=== PATIENT | male | born 1965 | race Caucasian/White ===

== ENCOUNTER 2017-11-20 12:44 | Emergency (ER) | payer SELFPAY ==
[~2017-11-20] VITALS: Ht 177.8 cm; Wt 81.6 kg
[2017-11-20 12:50] VITALS: BP 127/80
[2017-11-20] MEDS ORDERED: CYCLOBENZAPRINE HCL 10 MG TAB PO ONE (14:45)
[2017-11-20] MEDS ORDERED: KETOROLAC TROMETH 60MG/2ML VIAL IM ONE (14:45)
== END 2017-11-20 15:35 | disposition home or self-care (01) ==
LOC: ER 12:44
DX: S20.211A Contusion of right front wall of thorax, initial encounter (principal); M54.9 Dorsalgia, unspecified; M54.2 Cervicalgia; M25.512 Pain in left shoulder; E78.5 Hyperlipidemia, unspecified; V43.52XA Car driver injured in collision with other type car in traffic accident, initial encounter; Y93.89 Activity, other specified; Y92.89 Other specified places as the place of occurrence of the external cause; Y99.8 Other external cause status
CPT/HCPCS: 71101; 73030; 93005; 96372; 99284; J1885; 94761

== ENCOUNTER 2021-12-19 13:51 | Inpatient (IN) | payer MEDICAID ==
[~2021-12-19] VITALS: Ht 177.8 cm; Wt 31.8 kg
[~2021-12-19 13:51] MED LIST: THYR60TA PO
[2021-12-19] MEDS ORDERED: SODIUM CHLORIDE 0.9% 1,000 ML IV ONE ×3 (14:00→16:45)
[2021-12-19 14:39] LABS: Hemoglobin 8.9 g/dL (13.5-17.5)
[2021-12-19 14:40] LABS: Mean Corpuscular Hemoglobin 30.4 pg (28.0-32.0); Mean Corpuscular Hgb Conc. 34.3 g/dL (32.0-36.0); Mean Corpuscular Volume 88.6 fL (80.0-100.0); Red Blood Cells 2.94 10^6/uL (4.5-5.90); Red Cell Distribution Width 14.1 % (11.8-14.3); White Blood Cell 13.7 10^3/uL (4.4-10.8)
[2021-12-19 14:42] LABS: Basophils % (manual) 0 (0.0-2.0); Blast Cells 0; Eosinophils % (manual) 0 (0-7); Promyelocytes % 0; Reactive Lymphocytes 0
[2021-12-19 14:55] LABS: Band Neutrophils % (manual) 2; Lymphocytes % (manual) 3 (10.0-50.0); Metamyelocytes % 1; Monocytes % (manual) 11 (0-12); Myelocytes % 2
[2021-12-19 15:11] LABS: Albumin 1.9 g/dL (3.4-5.0); Calcium 8.1 mg/dL (8.5-10.1); Magnesium 2.5 mg/dL (1.6-2.6); Potassium 4.6 mmol/L (3.5-5.1)
[2021-12-19 15:14] LABS: Bilirubin, Total 0.4 mg/dL (0.2-1.0); Total Protein 6.9 g/dL (6.4-8.2)
[2021-12-19] MEDS ORDERED: cefTRIAXone 1GM/50ML D5W 50 ML IV ONE (16:45)
[2021-12-19 19:42] LABS: Urine Bacteria FEW /hpf (None Seen); Urine Blood Negative /uL (Negative); Urine Mucus FEW (None Seen); Urine Specific Gravity 1.008 (1.001-1.035); Urine WBC 2 /hpf (0 - 3)
[2021-12-19] MEDS ORDERED: ALBUTEROL SULF 2.5 MG/0.5ML(0.5%) NEB SOLN NEB ONE (22:15)
[2021-12-19] MEDS ORDERED: IPRATROPIUM BROM 0.5 MG/2.5ML INH SOL NEB ONE (22:15)
[2021-12-19] MEDS ORDERED: ONDANSETRON HCL 4 MG/2 ML VIAL IV PRN (22:45)
[2021-12-19] MEDS ORDERED: MORPHINE SULFATE INJECTION 2 MG/ML SYRG IV PRN (22:45)
[2021-12-19] MEDS ORDERED: ACETAMINOPHEN 325 MG TAB PO PRN (22:45)
[2021-12-19] MEDS ORDERED: hydrALAZINE HCL 10 MG TAB PO PRN (22:45)
[2021-12-19] MEDS ORDERED: HYDROcodone-ACET 5/325MG TAB PO PRN (22:45)
[2021-12-19] MEDS ORDERED: ALBUTEROL SULF 2.5 MG/0.5ML(0.5%) NEB SOLN NEB PRN (22:45)
[2021-12-19] MEDS ORDERED: SODIUM CHLORIDE 0.9% 1,000 ML IV SCH (22:45)
[2021-12-20] MEDS: DOXYCYCLINE 100MG/250ML 250 ML IV SCH ×2 (00:44→11:47)
[2021-12-20 00:46] VITALS: BP 104/53
[2021-12-20] MEDS ORDERED: ALUM & MAG HYDROX-SIMETH LIQ(MAALOX) 30 ML PO PRN (04:45)
[2021-12-20] MEDS ORDERED: ALBUMIN 25% 100 ML IV ONE (04:45)
[2021-12-20] MEDS ORDERED: SIMETHICONE 80 MG CHEWABLE TABLET PO PRN (04:45)
[2021-12-20] MEDS ORDERED: THYROID 60 MG TAB PO SCH (05:00)
[2021-12-20 06:20] LABS: Hemoglobin 7.9 g/dL (13.5-17.5); Mean Corpuscular Hemoglobin 30.1 pg (28.0-32.0); Mean Corpuscular Volume 91.3 fL (80.0-100.0); Red Blood Cells 2.62 10^6/uL (4.5-5.90); Red Cell Distribution Width 14.3 % (11.8-14.3); White Blood Cell 15.2 10^3/uL (4.4-10.8)
[2021-12-20 06:48] LABS: Potassium 4.2 mmol/L (3.5-5.1)
[2021-12-20 06:56] LABS: Albumin 2.4 g/dL (3.4-5.0); BUN/Creatinine Ratio 18.4; Calcium 7.8 mg/dL (8.5-10.1)
[2021-12-20 06:57] LABS: Basophils % (manual) 0 (0.0-2.0); Blast Cells 0; Promyelocytes % 0; Reactive Lymphocytes 0
[2021-12-20 06:59] LABS: Bilirubin, Total 0.3 mg/dL (0.2-1.0); Total Protein 6.6 g/dL (6.4-8.2)
[2021-12-20 08:23] LABS: Band Neutrophils % (manual) 5; Eosinophils % (manual) 1 (0-7); Lymphocytes % (manual) 3 (10.0-50.0); Metamyelocytes % 3; Monocytes % (manual) 14 (0-12); Myelocytes % 1
[2021-12-20 09:00] VITALS: BP 92/66
[2021-12-20] MEDS ORDERED: LORazepam 2MG/ML-1ML VIAL IV PRN (09:00)
[2021-12-20] MEDS: ALBUTEROL SULF 2.5 MG/0.5ML(0.5%) NEB SOLN NEB SCH ×5 (09:33→21:06)
[2021-12-20] MEDS: IPRATROPIUM BROM 0.5 MG/2.5ML INH SOL NEB SCH ×5 (09:33→21:06)
[2021-12-20] MEDS: SODIUM CHLORIDE 0.9% 1,000 ML IV SCH (11:08)
[2021-12-20 13:03] VITALS: BP 92/66
[2021-12-20 14:45] LABS: % Iron Saturation 10.3 % (20-55)
[2021-12-20 17:00] VITALS: BP 98/66
[2021-12-20 22:00] VITALS: BP 100/59
[2021-12-21] MEDS: SODIUM CHLORIDE 0.9% 1,000 ML IV SCH ×2 (00:30→14:14)
[2021-12-21] MEDS: DOXYCYCLINE 100MG/250ML 250 ML IV SCH ×3 (00:30→23:28)
[2021-12-21] MEDS: IPRATROPIUM BROM 0.5 MG/2.5ML INH SOL NEB SCH ×6 (02:06→22:55)
[2021-12-21] MEDS: ALBUTEROL SULF 2.5 MG/0.5ML(0.5%) NEB SOLN NEB SCH ×6 (02:06→22:55)
[2021-12-21] MEDS: THYROID 60 MG TAB PO SCH (04:47)
[2021-12-21 05:00] VITALS: BP 103/69
[2021-12-21 05:57] LABS: Hematocrit 21.9 % (41.0-53.0); Hemoglobin 7.4 g/dL (13.5-17.5); Mean Corpuscular Hgb Conc. 33.9 g/dL (32.0-36.0)
[2021-12-21 06:00] LABS: Mean Corpuscular Hemoglobin 30.7 pg (28.0-32.0); Mean Corpuscular Volume 90.4 fL (80.0-100.0); Red Blood Cells 2.42 10^6/uL (4.5-5.90); White Blood Cell 9.1 10^3/uL (4.4-10.8)
[2021-12-21 06:14] LABS: Albumin 1.9 g/dL (3.4-5.0)
[2021-12-21 06:19] LABS: BUN/Creatinine Ratio 11.2; Basophils % (manual) 0 (0.0-2.0); Bilirubin, Total 0.4 mg/dL (0.2-1.0); Blast Cells 0; Eosinophils % (manual) 0 (0-7); Lymphocytes % (manual) 0 (10.0-50.0); Myelocytes % 0; Promyelocytes % 0; Reactive Lymphocytes 0; Total Protein 6.1 g/dL (6.4-8.2)
[2021-12-21 08:00] VITALS: BP 97/63
[2021-12-21] MEDS ORDERED: guaiFENesin 200 MG/10 ML UD PO PRN (08:00)
[2021-12-21 08:02] LABS: Band Neutrophils % (manual) 54; Metamyelocytes % 4; Monocytes % (manual) 8 (0-12)
[2021-12-21 08:55] VITALS: BP 97/63
[2021-12-21 13:00] VITALS: BP 99/63
[2021-12-21] MEDS: guaiFENesin-CODEINE Liq 5 ML UD PO PRN ×3 (14:15→22:15)
[2021-12-21 17:00] VITALS: BP 98/65
[2021-12-21] MEDS: FERROUS SULFATE 325mg EC TAB PO SCH (18:24)
[2021-12-21] MEDS: ENOXAPARIN SOD 40 MG/0.4 ML SYRINGE SC SCH ×2 (18:24→18:30)
[2021-12-21] MEDS: LACTULOSE 20Gm/30ML SOLN PO PRN (18:25)
[2021-12-21 21:54] VITALS: BP 102/59
[2021-12-21] MEDS: SENNA 8.6 MG TAB PO SCH (22:15)
[2021-12-21] MEDS: DOCUSATE SOD 100 MG CAP PO SCH (22:15)
[2021-12-22] MEDS: IPRATROPIUM BROM 0.5 MG/2.5ML INH SOL NEB SCH ×6 (03:10→23:05)
[2021-12-22] MEDS: ALBUTEROL SULF 2.5 MG/0.5ML(0.5%) NEB SOLN NEB SCH ×6 (03:10→23:05)
[2021-12-22] MEDS: guaiFENesin-CODEINE Liq 5 ML UD PO PRN ×2 (03:15→09:07)
[2021-12-22 05:00] VITALS: BP 101/66
[2021-12-22 05:22] LABS: Hemoglobin 7.7 g/dL (13.5-17.5); Red Cell Distribution Width 14.2 % (11.8-14.3)
[2021-12-22] MEDS: THYROID 60 MG TAB PO SCH (05:22)
[2021-12-22] MEDS: SODIUM CHLORIDE 0.9% 1,000 ML IV SCH ×2 (05:22→19:12)
[2021-12-22 05:26] LABS: Hematocrit 22.5 % (41.0-53.0); Mean Corpuscular Hemoglobin 30.6 pg (28.0-32.0); White Blood Cell 8.1 10^3/uL (4.4-10.8)
[2021-12-22 05:31] LABS: Basophils % (manual) 0 (0.0-2.0); Blast Cells 0; Eosinophils % (manual) 0 (0-7); Promyelocytes % 0; Reactive Lymphocytes 0
[2021-12-22 05:35] LABS: BUN/Creatinine Ratio 6.3; Calcium 8.1 mg/dL (8.5-10.1); Potassium 4.3 mmol/L (3.5-5.1)
[2021-12-22 05:38] LABS: Bilirubin, Total 0.3 mg/dL (0.2-1.0); Total Protein 6.3 g/dL (6.4-8.2)
[2021-12-22 05:58] LABS: Band Neutrophils % (manual) 14; Lymphocytes % (manual) 3 (10.0-50.0); Metamyelocytes % 1; Monocytes % (manual) 14 (0-12); Myelocytes % 2
[2021-12-22] MEDS: FERROUS SULFATE 325mg EC TAB PO SCH ×3 (08:41→19:00)
[2021-12-22] MEDS: DOCUSATE SOD 100 MG CAP PO SCH ×2 (08:42→21:56)
[2021-12-22] MEDS: ENOXAPARIN SOD 40 MG/0.4 ML SYRINGE SC SCH ×2 (08:42→10:00)
[2021-12-22 09:00] VITALS: BP 104/66
[2021-12-22] MEDS: DOXYCYCLINE 100 MG TAB/CAP PO SCH ×2 (11:10→22:00)
[2021-12-22] MEDS: PROMETHAZINE W/CODEINE 5 ML ORAL SYRUP PO PRN ×4 (11:10→23:06)
[2021-12-22] MEDS ORDERED: GUAI100S6 PO ×3 (11:36→11:45)
[2021-12-22] MEDS ORDERED: DOX100T PO (11:38)
[2021-12-22] MEDS ORDERED: SENN-83 PO (11:38)
[2021-12-22] MEDS ORDERED: DOCU100C10 PO (11:38)
[2021-12-22] MEDS ORDERED: FER325T PO (11:38)
[2021-12-22] MEDS ORDERED: [UNRECOGNIZED DRUG - CODE] (12:09)
[2021-12-22] MEDS ORDERED: DEXTSYP31 PO (12:11)
[2021-12-22 13:00] VITALS: BP 104/72
[2021-12-22 17:00] VITALS: BP 122/68
[2021-12-22 18:08] VITALS: BP 122/68
[2021-12-22 21:47] VITALS: BP 110/68
[2021-12-22] MEDS: SENNA 8.6 MG TAB PO SCH (21:56)
[2021-12-23] MEDS: PROMETHAZINE W/CODEINE 5 ML ORAL SYRUP PO PRN ×4 (02:52→17:05)
[2021-12-23] MEDS: IPRATROPIUM BROM 0.5 MG/2.5ML INH SOL NEB SCH ×4 (03:00→14:43)
[2021-12-23] MEDS: ALBUTEROL SULF 2.5 MG/0.5ML(0.5%) NEB SOLN NEB SCH ×4 (03:00→14:43)
[2021-12-23 04:48] VITALS: BP 105/76
[2021-12-23] MEDS: THYROID 60 MG TAB PO SCH (04:54)
[2021-12-23] MEDS: FERROUS SULFATE 325mg EC TAB PO SCH ×2 (07:33→11:54)
[2021-12-23] MEDS: LACTULOSE 20Gm/30ML SOLN PO PRN (07:47)
[2021-12-23 08:00] VITALS: BP 104/73
[2021-12-23] MEDS: SODIUM CHLORIDE 0.9% 1,000 ML IV SCH (09:30)
[2021-12-23] MEDS: ENOXAPARIN SOD 40 MG/0.4 ML SYRINGE SC SCH (10:00)
[2021-12-23] MEDS: DOCUSATE SOD 100 MG CAP PO SCH (10:14)
[2021-12-23] MEDS: DOXYCYCLINE 100 MG TAB/CAP PO SCH (10:14)
[2021-12-23 12:00] VITALS: BP 99/66
[2021-12-23 16:00] VITALS: BP 110/67
== END 2021-12-23 17:45 | disposition home health service (06) | DRG 139 ==
LOC: ER 13:51 → EDBD 13:51 → TELE 22:36 → TELE-EAST 12-20 08:53
PROVIDERS: ADMIT Nurse Practitioner Family; ATTEND Nurse Practitioner Family
DX: J18.9 Pneumonia, unspecified organism (principal); J96.01 Acute respiratory failure with hypoxia; N17.0 Acute kidney failure with tubular necrosis; C34.90 Malignant neoplasm of unspecified part of unspecified bronchus or lung; C09.9 Malignant neoplasm of tonsil, unspecified; E87.1 Hypo-osmolality and hyponatremia; E87.8 Other disorders of electrolyte and fluid balance, not elsewhere classified; E86.0 Dehydration; D75.839 Thrombocytosis, unspecified; I95.89 Other hypotension; E03.9 Hypothyroidism, unspecified; J43.9 Emphysema, unspecified; D50.9 Iron deficiency anemia, unspecified; E86.1 Hypovolemia; I10 Essential (primary) hypertension; J98.11 Atelectasis; R00.0 Tachycardia, unspecified; Z20.822 Contact with and (suspected) exposure to COVID-19; Z85.118 Personal history of other malignant neoplasm of bronchus and lung; Z85.818 Personal history of malignant neoplasm of other sites of lip, oral cavity, and pharynx; Z92.21 Personal history of antineoplastic chemotherapy; Z92.3 Personal history of irradiation; Z87.891 Personal history of nicotine dependence
CPT/HCPCS: 36415; 70450; 71045; 71250; 76775; 80053; 81001; 82270; 83540; 83550; 83605; 83735; 85007; 85027; 85045; 86880; 87040; 93005; 94640; 96361; 96365; 99291; G0378; J0696; J3490; P9047

== ENCOUNTER 2022-02-18 11:30 | Inpatient (IN) | payer MEDICAID ==
[~2022-02-18] VITALS: Ht 177.8 cm; Wt 60.8 kg
[~2022-02-18 11:30] MED LIST changes: +DEXTSYP31 PO; +DOCU100C10 PO; +DOX100T PO; +FER325T PO; +GUAI100S6 PO; +SENN-83 PO; +[UNRECOGNIZED DRUG - CODE]
[2022-02-18] MEDS ORDERED: cefTRIAXone 1GM/50ML D5W 50 ML IV ONE (12:00)
[2022-02-18] MEDS ORDERED: MAGNESIUM SULFATE 1GM/100ML 100 ML IV ONE (12:00)
[2022-02-18] MEDS ORDERED: AZITHROMYCIN 500MG/ 250ML 250 ML IV ONE (12:00)
[2022-02-18 12:30] LABS: Eosinophils # (auto) 0 10 ^3/uL (0-0.8); Hemoglobin 8.3 g/dL (13.5-17.5); Lymphocytes # (auto) 0.2 10 ^3/uL (0.4-5.4); Mean Corpuscular Hemoglobin 26.1 pg (28.0-32.0); White Blood Cell 14.4 10^3/uL (4.4-10.8)
[2022-02-18 12:34] LABS: Basophils # (auto) 0.1 10 ^3/uL (0-0.2); Basophils % (auto) 0.4 % (0.0-2.0); Lymphocytes % (auto) 1.6 % (10.0-50.0); Mean Corpuscular Hgb Conc. 31.9 g/dL (32.0-36.0); Monocytes # (auto) 0.8 10 ^3/uL (0-1.3); Monocytes % (auto) 5.4 % (0.0-12.0); Neutrophils # (auto) 13.3 10 ^3/uL (1.6-8.6); Neutrophils % (auto) 92.6 % (37.0-80.0); Nucleated Red Blood Cells % 0.1 %; Red Blood Cells 3.18 10^6/uL (4.5-5.90); Red Cell Distribution Width 19.1 % (11.8-14.3)
[2022-02-18 12:45] LABS: Albumin 1.7 g/dL (3.4-5.0); BUN/Creatinine Ratio 34.5; Calcium 8.8 mg/dL (8.5-10.1); Potassium 4.3 mmol/L (3.5-5.1)
[2022-02-18 12:48] LABS: Bilirubin, Total 0.4 mg/dL (0.2-1.0); Total Protein 7.4 g/dL (6.4-8.2)
[2022-02-18 12:53] LABS: INR 1.43 (0.9-1.15); Partial Thromboplastin Time 29.1 sec (23.6-33.0)
[2022-02-18 13:56] LABS: Lactic Acid w/Reflex 2.7 mmol/L (0.4-2.0)
[2022-02-18] MEDS ORDERED: SODIUM CHLORIDE 0.9% 2,000 ML IV ONE (14:15)
[2022-02-18] MEDS ORDERED: IOHEXOL 350 MG/ML 100ML IJ ONE (16:28)
[2022-02-18] MEDS ORDERED: MORPHINE SULFATE INJ 2 MG/ml SYRG IV PRN ×2 (17:00)
[2022-02-18] MEDS ORDERED: ONDANSETRON HCL 4 MG/2 ML VIAL IV PRN (17:00)
[2022-02-18] MEDS ORDERED: NITROGLYCERIN 0.4 MG SL TAB SL PRN (17:00)
[2022-02-18] MEDS: IPRATROPIUM BROM 0.5 MG/2.5ML INH SOL NEB SCH (17:33)
[2022-02-18] MEDS: ALBUTEROL SULF 2.5 MG/0.5ML(0.5%) NEB SOLN NEB PRN (17:33)
[2022-02-18] MEDS: PIPERACILLIN-TAZOB 3.375GM 100 ML IV SCH (18:13)
[2022-02-19] MEDS: PIPERACILLIN-TAZOB 3.375GM 100 ML IV SCH ×4 (00:13→18:21)
[2022-02-19] MEDS: ALBUTEROL SULF 2.5 MG/0.5ML(0.5%) NEB SOLN NEB PRN ×7 (02:34→22:02)
[2022-02-19] MEDS: IPRATROPIUM BROM 0.5 MG/2.5ML INH SOL NEB SCH ×8 (02:35→22:02)
[2022-02-19 04:34] LABS: Basophils # (auto) 0 10 ^3/uL (0-0.2); Eosinophils # (auto) 0 10 ^3/uL (0-0.8); Eosinophils % (auto) 0.1 % (0.0-7.0); Lymphocytes # (auto) 0.3 10 ^3/uL (0.4-5.4); Lymphocytes % (auto) 2.6 % (10.0-50.0); Red Blood Cells 2.98 10^6/uL (4.5-5.90)
[2022-02-19 04:37] LABS: Basophils % (auto) 0.1 % (0.0-2.0); Hematocrit 24.6 % (41.0-53.0); Hemoglobin 7.7 g/dL (13.5-17.5); Mean Corpuscular Hemoglobin 25.9 pg (28.0-32.0); Mean Corpuscular Hgb Conc. 31.3 g/dL (32.0-36.0); Mean Corpuscular Volume 82.6 fL (80.0-100.0); Neutrophils % (auto) 88.2 % (37.0-80.0); Red Cell Distribution Width 19.2 % (11.8-14.3); White Blood Cell 11.3 10^3/uL (4.4-10.8)
[2022-02-19 04:51] LABS: Calcium 8.1 mg/dL (8.5-10.1); Potassium 3.9 mmol/L (3.5-5.1)
[2022-02-19 04:58] LABS: Albumin 1.5 g/dL (3.4-5.0); BUN/Creatinine Ratio 37.3; Bilirubin, Total 0.3 mg/dL (0.2-1.0); Total Protein 6.7 g/dL (6.4-8.2)
[2022-02-19] MEDS: ENOXAPARIN SOD 40 MG/0.4 ML SYRINGE SC SCH (10:13)
[2022-02-19] MEDS: ACETAMINOPHEN 325 MG TAB PO PRN ×2 (18:50→19:51)
[2022-02-20] VITALS (54 sets, daily range): BP systolic 93–123; BP diastolic 64–93
[2022-02-20] MEDS: ACETAMINOPHEN 325 MG TAB PO PRN (03:52)
[2022-02-20] MEDS: ALBUTEROL SULF 2.5 MG/0.5ML(0.5%) NEB SOLN NEB PRN ×5 (06:18→22:33)
[2022-02-20] MEDS: IPRATROPIUM BROM 0.5 MG/2.5ML INH SOL NEB SCH ×5 (06:18→22:34)
[2022-02-20] MEDS: PIPERACILLIN-TAZOB 3.375GM 100 ML IV SCH ×4 (06:37→17:58)
[2022-02-20 06:45] LABS: Basophils # (auto) 0 10 ^3/uL (0-0.2); Basophils % (auto) 0.1 % (0.0-2.0); Eosinophils # (auto) 0 10 ^3/uL (0-0.8); Eosinophils % (auto) 0.3 % (0.0-7.0); Hemoglobin 7.3 g/dL (13.5-17.5); Lymphocytes # (auto) 0.3 10 ^3/uL (0.4-5.4)
[2022-02-20 06:48] LABS: Hematocrit 22.5 % (41.0-53.0); Lymphocytes % (auto) 3.1 % (10.0-50.0); Mean Corpuscular Hemoglobin 26.7 pg (28.0-32.0); Mean Corpuscular Hgb Conc. 32.5 g/dL (32.0-36.0); Mean Corpuscular Volume 82.1 fL (80.0-100.0); Monocytes % (auto) 10.9 % (0.0-12.0); Neutrophils # (auto) 7.8 10 ^3/uL (1.6-8.6); Neutrophils % (auto) 85.6 % (37.0-80.0); Red Blood Cells 2.74 10^6/uL (4.5-5.90); Red Cell Distribution Width 18.4 % (11.8-14.3); White Blood Cell 9.1 10^3/uL (4.4-10.8)
[2022-02-20] MEDS ORDERED: ALBUAER3 IN (07:52)
[2022-02-20] MEDS ORDERED: CIPR500T4 PO (07:52)
[2022-02-20] MEDS ORDERED: OMEP20TA PO (07:52)
[2022-02-20] MEDS ORDERED: THYR30TA PO (07:52)
[2022-02-20] MEDS: ENOXAPARIN SOD 40 MG/0.4 ML SYRINGE SC SCH (10:00)
[2022-02-20] MEDS: THYROID 60 MG TAB PO SCH (10:06)
[2022-02-20] MEDS ORDERED: LIDOCAINE 2%HCL (LOCAL ANESTH.) INJ 10ml MDV ONE (11:09)
[2022-02-20] MEDS: HYDROcodone-ACET 5/325MG TAB PO PRN ×3 (13:02→21:23)
[2022-02-21] VITALS (37 sets, daily range): BP systolic 82–107; BP diastolic 57–84
[2022-02-21] MEDS: PIPERACILLIN-TAZOB 3.375GM 100 ML IV SCH ×5 (00:10→23:36)
[2022-02-21] MEDS: HYDROcodone-ACET 5/325MG TAB PO PRN ×4 (02:21→23:35)
[2022-02-21] MEDS: ALBUTEROL SULF 2.5 MG/0.5ML(0.5%) NEB SOLN NEB PRN ×5 (02:43→21:28)
[2022-02-21] MEDS: IPRATROPIUM BROM 0.5 MG/2.5ML INH SOL NEB SCH ×5 (02:43→21:28)
[2022-02-21] MEDS: THYROID 60 MG TAB PO SCH (05:11)
[2022-02-21] MEDS: ENOXAPARIN SOD 40 MG/0.4 ML SYRINGE SC SCH (10:00)
[2022-02-21] MEDS ORDERED: PANTOPRAZOLE 40 MG TAB PO ONE (10:45)
[2022-02-21] MEDS ORDERED: ALUM & MAG HYDROX-SIMETH LIQ(MAALOX) 30 ML PO ONE ×2 (12:15→13:00)
[2022-02-22] VITALS (23 sets, daily range): BP systolic 82–99; BP diastolic 50–69
[2022-02-22] MEDS: IPRATROPIUM BROM 0.5 MG/2.5ML INH SOL NEB SCH ×6 (01:44→22:03)
[2022-02-22] MEDS: ALBUTEROL SULF 2.5 MG/0.5ML(0.5%) NEB SOLN NEB PRN ×6 (01:44→22:03)
[2022-02-22] MEDS: HYDROcodone-ACET 5/325MG TAB PO PRN ×4 (03:40→20:30)
[2022-02-22 04:48] LABS: Basophils # (auto) 0 10 ^3/uL (0-0.2); Basophils % (auto) 0.1 % (0.0-2.0); Eosinophils # (auto) 0 10 ^3/uL (0-0.8); Eosinophils % (auto) 0.3 % (0.0-7.0); Hematocrit 24.3 % (41.0-53.0); Lymphocytes # (auto) 0.3 10 ^3/uL (0.4-5.4); Mean Corpuscular Hemoglobin 25.7 pg (28.0-32.0); Mean Corpuscular Hgb Conc. 30.3 g/dL (32.0-36.0)
[2022-02-22 04:49] LABS: Hemoglobin 7.4 g/dL (13.5-17.5); Mean Corpuscular Volume 84.6 fL (80.0-100.0); Monocytes # (auto) 0.9 10 ^3/uL (0-1.3); Monocytes % (auto) 8.4 % (0.0-12.0); Neutrophils # (auto) 9.3 10 ^3/uL (1.6-8.6); Neutrophils % (auto) 88.2 % (37.0-80.0); Red Blood Cells 2.87 10^6/uL (4.5-5.90); Red Cell Distribution Width 18.7 % (11.8-14.3); White Blood Cell 10.5 10^3/uL (4.4-10.8)
[2022-02-22] MEDS: THYROID 60 MG TAB PO SCH (05:02)
[2022-02-22 05:05] LABS: BUN/Creatinine Ratio 35.1; Calcium 8.7 mg/dL (8.5-10.1); Potassium 4.2 mmol/L (3.5-5.1)
[2022-02-22] MEDS: PIPERACILLIN-TAZOB 3.375GM 100 ML IV SCH ×3 (06:14→19:11)
[2022-02-22] MEDS: ALUM & MAG HYDROX-SIMETH LIQ(MAALOX) 30 ML PO SCH (10:00)
[2022-02-22] MEDS: ENOXAPARIN SOD 40 MG/0.4 ML SYRINGE SC SCH (10:00)
[2022-02-22] MEDS: PANTOPRAZOLE 40 MG TAB PO SCH (10:00)
[2022-02-23] VITALS (26 sets, daily range): BP systolic 87–113; BP diastolic 56–81
[2022-02-23] MEDS: PIPERACILLIN-TAZOB 3.375GM 100 ML IV SCH ×3 (00:14→11:20)
[2022-02-23] MEDS: HYDROcodone-ACET 5/325MG TAB PO PRN ×5 (00:34→20:51)
[2022-02-23] MEDS: THYROID 60 MG TAB PO SCH (05:14)
[2022-02-23] MEDS: ALBUTEROL SULF 2.5 MG/0.5ML(0.5%) NEB SOLN NEB PRN ×5 (06:45→22:21)
[2022-02-23] MEDS: IPRATROPIUM BROM 0.5 MG/2.5ML INH SOL NEB SCH ×5 (06:45→22:21)
[2022-02-23] MEDS: ENOXAPARIN SOD 40 MG/0.4 ML SYRINGE SC SCH (09:43)
[2022-02-23] MEDS: PANTOPRAZOLE 40 MG TAB PO SCH (09:44)
[2022-02-23] MEDS: ALUM & MAG HYDROX-SIMETH LIQ(MAALOX) 30 ML PO SCH ×2 (11:04→11:19)
[2022-02-23] MEDS ORDERED: LACTULOSE 20Gm/30ML SOLN PO PRN (12:00)
[2022-02-23] MEDS ORDERED: CEFTRIAXONE SODIUM 2 GM in D5W 5% 50 ML IV ONE (13:15)
[2022-02-23] MEDS: DOCUSATE SOD 100 MG CAP PO SCH (22:36)
[2022-02-23] MEDS: SENNA 8.6 MG TAB PO SCH (22:36)
[2022-02-24] VITALS (22 sets, daily range): BP systolic 93–114; BP diastolic 53–80
[2022-02-24] MEDS: HYDROcodone-ACET 5/325MG TAB PO PRN ×7 (01:17→23:04)
[2022-02-24] MEDS: THYROID 60 MG TAB PO SCH (05:35)
[2022-02-24 05:59] LABS: Basophils # (auto) 0 10 ^3/uL (0-0.2); Basophils % (auto) 0.1 % (0.0-2.0); Eosinophils # (auto) 0 10 ^3/uL (0-0.8); Eosinophils % (auto) 0.4 % (0.0-7.0); Hemoglobin 7.2 g/dL (13.5-17.5); Lymphocytes # (auto) 0.4 10 ^3/uL (0.4-5.4); Monocytes # (auto) 0.9 10 ^3/uL (0-1.3)
[2022-02-24 06:02] LABS: Hematocrit 22.5 % (41.0-53.0); Lymphocytes % (auto) 4.4 % (10.0-50.0); Mean Corpuscular Hemoglobin 25.9 pg (28.0-32.0); Mean Corpuscular Hgb Conc. 31.8 g/dL (32.0-36.0); Mean Corpuscular Volume 81.4 fL (80.0-100.0); Monocytes % (auto) 9.1 % (0.0-12.0); Neutrophils # (auto) 8.5 10 ^3/uL (1.6-8.6); Red Blood Cells 2.77 10^6/uL (4.5-5.90); Red Cell Distribution Width 18.7 % (11.8-14.3); White Blood Cell 9.9 10^3/uL (4.4-10.8)
[2022-02-24 06:13] LABS: Potassium 4.2 mmol/L (3.5-5.1)
[2022-02-24 06:21] LABS: BUN/Creatinine Ratio 29.7; Calcium 8.1 mg/dL (8.5-10.1)
[2022-02-24] MEDS: IPRATROPIUM BROM 0.5 MG/2.5ML INH SOL NEB SCH ×5 (06:28→21:59)
[2022-02-24] MEDS: ALBUTEROL SULF 2.5 MG/0.5ML(0.5%) NEB SOLN NEB PRN ×5 (06:28→21:59)
[2022-02-24] MEDS: PANTOPRAZOLE 40 MG TAB PO SCH (09:34)
[2022-02-24] MEDS: DOCUSATE SOD 100 MG CAP PO SCH ×2 (09:34→22:02)
[2022-02-24] MEDS: ENOXAPARIN SOD 40 MG/0.4 ML SYRINGE SC SCH (09:34)
[2022-02-24] MEDS: CEFTRIAXONE SODIUM 2 GM in D5W 5% 50 ML IV SCH (09:40)
[2022-02-24] MEDS: ALUM & MAG HYDROX-SIMETH LIQ(MAALOX) 30 ML PO SCH (10:00)
[2022-02-24] MEDS: SENNA 8.6 MG TAB PO SCH (22:00)
[2022-02-25] VITALS (16 sets, daily range): BP systolic 89–109; BP diastolic 65–73
[2022-02-25] MEDS: HYDROcodone-ACET 5/325MG TAB PO PRN ×5 (03:49→20:36)
[2022-02-25] MEDS: THYROID 60 MG TAB PO SCH (05:13)
[2022-02-25] MEDS: OMEPRAZOLE DR 20 MG CAPSULE PO SCH (05:17)
[2022-02-25 05:19] LABS: Mean Corpuscular Hgb Conc. 31.3 g/dL (32.0-36.0)
[2022-02-25 05:20] LABS: Hematocrit 21.7 % (41.0-53.0); Mean Corpuscular Hemoglobin 25.2 pg (28.0-32.0); Mean Corpuscular Volume 80.6 fL (80.0-100.0); Red Blood Cells 2.69 10^6/uL (4.5-5.90); Red Cell Distribution Width 18.9 % (11.8-14.3); White Blood Cell 8.2 10^3/uL (4.4-10.8)
[2022-02-25 05:24] LABS: Hemoglobin 6.8 g/dL (13.5-17.5)
[2022-02-25 05:26] LABS: Basophils % (manual) 0 (0.0-2.0); Blast Cells 0; Eosinophils % (manual) 0 (0-7); Metamyelocytes % 0; Promyelocytes % 0; Reactive Lymphocytes 0
[2022-02-25 05:32] LABS: Calcium 8.3 mg/dL (8.5-10.1); Magnesium 1.7 mg/dL (1.6-2.6); Potassium 4.4 mmol/L (3.5-5.1)
[2022-02-25 05:33] LABS: BUN/Creatinine Ratio 23.7
[2022-02-25] MEDS: ALBUTEROL SULF 2.5 MG/0.5ML(0.5%) NEB SOLN NEB PRN ×5 (06:04→22:01)
[2022-02-25] MEDS: IPRATROPIUM BROM 0.5 MG/2.5ML INH SOL NEB SCH ×5 (06:04→22:01)
[2022-02-25 06:25] LABS: Band Neutrophils % (manual) 5; Lymphocytes % (manual) 5 (10.0-50.0); Monocytes % (manual) 2 (0-12); Myelocytes % 1
[2022-02-25] MEDS: DOCUSATE SOD 100 MG CAP PO SCH ×2 (09:08→22:22)
[2022-02-25] MEDS: CEFTRIAXONE SODIUM 2 GM in D5W 5% 50 ML IV SCH (09:08)
[2022-02-25] MEDS: ENOXAPARIN SOD 40 MG/0.4 ML SYRINGE SC SCH (09:09)
[2022-02-25] MEDS: ALUM & MAG HYDROX-SIMETH LIQ(MAALOX) 30 ML PO SCH (09:09)
[2022-02-25] MEDS: PANTOPRAZOLE 40 MG TAB PO SCH (09:49)
[2022-02-25] MEDS: SENNA 8.6 MG TAB PO SCH (22:00)
[2022-02-26] MEDS: HYDROcodone-ACET 5/325MG TAB PO PRN ×5 (00:45→20:16)
[2022-02-26] MEDS: THYROID 60 MG TAB PO SCH (04:42)
[2022-02-26 05:01] VITALS: BP 98/69
[2022-02-26] MEDS: IPRATROPIUM BROM 0.5 MG/2.5ML INH SOL NEB SCH ×5 (05:50→21:42)
[2022-02-26] MEDS: ALBUTEROL SULF 2.5 MG/0.5ML(0.5%) NEB SOLN NEB PRN ×5 (05:50→21:42)
[2022-02-26 08:00] VITALS: BP 103/76
[2022-02-26] MEDS: DOCUSATE SOD 100 MG CAP PO SCH ×2 (09:48→22:32)
[2022-02-26] MEDS: ENOXAPARIN SOD 40 MG/0.4 ML SYRINGE SC SCH (09:48)
[2022-02-26] MEDS: CEFTRIAXONE SODIUM 2 GM in D5W 5% 50 ML IV SCH (09:48)
[2022-02-26] MEDS: OMEPRAZOLE DR 20 MG CAPSULE PO SCH (09:49)
[2022-02-26] MEDS: PANTOPRAZOLE 40 MG TAB PO SCH (10:00)
[2022-02-26] MEDS: ALUM & MAG HYDROX-SIMETH LIQ(MAALOX) 30 ML PO SCH (10:00)
[2022-02-26 12:00] VITALS: BP 88/60
[2022-02-26 16:00] VITALS: BP 103/73
[2022-02-26 19:00] VITALS: BP 99/68
[2022-02-26] MEDS: SENNA 8.6 MG TAB PO SCH (22:00)
[2022-02-27 01:00] VITALS: BP 98/73
[2022-02-27] MEDS: HYDROcodone-ACET 5/325MG TAB PO PRN ×5 (03:43→22:15)
[2022-02-27 04:00] VITALS: BP 103/74
[2022-02-27 04:42] LABS: Hematocrit 24.7 % (41.0-53.0); Hemoglobin 7.7 g/dL (13.5-17.5); Mean Corpuscular Hemoglobin 25.2 pg (28.0-32.0); Mean Corpuscular Hgb Conc. 31.1 g/dL (32.0-36.0); Mean Corpuscular Volume 80.9 fL (80.0-100.0); Red Blood Cells 3.06 10^6/uL (4.5-5.90); Red Cell Distribution Width 18.5 % (11.8-14.3); White Blood Cell 11.6 10^3/uL (4.4-10.8)
[2022-02-27 04:43] LABS: Band Neutrophils % (manual) 0; Basophils % (manual) 0 (0.0-2.0); Blast Cells 0; Eosinophils % (manual) 0 (0-7); Metamyelocytes % 0; Myelocytes % 0; Promyelocytes % 0; Reactive Lymphocytes 0
[2022-02-27 05:00] LABS: Albumin 1.1 g/dL (3.4-5.0); Calcium 7.9 mg/dL (8.5-10.1); Potassium 4.2 mmol/L (3.5-5.1)
[2022-02-27 05:04] LABS: BUN/Creatinine Ratio 22.5; Bilirubin, Total 0.2 mg/dL (0.2-1.0)
[2022-02-27] MEDS: THYROID 60 MG TAB PO SCH (05:23)
[2022-02-27] MEDS: ALBUTEROL SULF 2.5 MG/0.5ML(0.5%) NEB SOLN NEB PRN ×4 (05:31→22:50)
[2022-02-27] MEDS: IPRATROPIUM BROM 0.5 MG/2.5ML INH SOL NEB SCH ×5 (05:31→22:50)
[2022-02-27] MEDS: OMEPRAZOLE DR 20 MG CAPSULE PO SCH (06:02)
[2022-02-27 08:00] VITALS: BP 100/66
[2022-02-27 08:32] LABS: Lymphocytes % (manual) 5 (10.0-50.0); Monocytes % (manual) 10 (0-12)
[2022-02-27] MEDS: ALUM & MAG HYDROX-SIMETH LIQ(MAALOX) 30 ML PO SCH (09:45)
[2022-02-27] MEDS: CEFTRIAXONE SODIUM 2 GM in D5W 5% 50 ML IV SCH (09:45)
[2022-02-27] MEDS: PANTOPRAZOLE 40 MG TAB PO SCH (09:45)
[2022-02-27] MEDS: ENOXAPARIN SOD 40 MG/0.4 ML SYRINGE SC SCH (09:45)
[2022-02-27] MEDS: DOCUSATE SOD 100 MG CAP PO SCH ×2 (09:45→22:15)
[2022-02-27 12:00] VITALS: BP 97/62
[2022-02-27 16:00] VITALS: BP 90/72
[2022-02-27] MEDS: SENNA 8.6 MG TAB PO SCH (22:00)
[2022-02-28] VITALS (40 sets, daily range): BP systolic 90–118; BP diastolic 57–79
[2022-02-28] MEDS: HYDROcodone-ACET 5/325MG TAB PO PRN ×3 (03:08→20:51)
[2022-02-28 05:00] LABS: Basophils # (auto) 0 10 ^3/uL (0-0.2); Eosinophils # (auto) 0 10 ^3/uL (0-0.8); Eosinophils % (auto) 0.3 % (0.0-7.0); Hemoglobin 7.3 g/dL (13.5-17.5); Lymphocytes # (auto) 0.3 10 ^3/uL (0.4-5.4)
[2022-02-28] MEDS: THYROID 60 MG TAB PO SCH (05:03)
[2022-02-28 05:04] LABS: Basophils % (auto) 0.2 % (0.0-2.0); Hematocrit 22.9 % (41.0-53.0); Lymphocytes % (auto) 2.6 % (10.0-50.0); Mean Corpuscular Hemoglobin 25.9 pg (28.0-32.0); Mean Corpuscular Hgb Conc. 32.1 g/dL (32.0-36.0); Mean Corpuscular Volume 80.7 fL (80.0-100.0); Monocytes % (auto) 7.2 % (0.0-12.0); Neutrophils # (auto) 12.1 10 ^3/uL (1.6-8.6); Neutrophils % (auto) 89.7 % (37.0-80.0); Red Blood Cells 2.83 10^6/uL (4.5-5.90); Red Cell Distribution Width 18.5 % (11.8-14.3); White Blood Cell 13.5 10^3/uL (4.4-10.8)
[2022-02-28 05:19] LABS: BUN/Creatinine Ratio 21.6; Calcium 8.1 mg/dL (8.5-10.1); Potassium 4.3 mmol/L (3.5-5.1)
[2022-02-28] MEDS: OMEPRAZOLE DR 20 MG CAPSULE PO SCH (07:00)
[2022-02-28 07:26] LABS: INR 1.26 (0.9-1.15); Partial Thromboplastin Time 35.6 sec (23.6-33.0)
[2022-02-28] MEDS ORDERED: LIDOCAINE HCL 2 % INJ 2ML MPF NEB ONE (08:30)
[2022-02-28] MEDS: SODIUM CHLORIDE 0.9% 1,000 ML IV SCH ×2 (09:20)
[2022-02-28] MEDS: ALUM & MAG HYDROX-SIMETH LIQ(MAALOX) 30 ML PO SCH (09:21)
[2022-02-28] MEDS: DOCUSATE SOD 100 MG CAP PO SCH ×2 (09:21→20:45)
[2022-02-28] MEDS: CEFTRIAXONE SODIUM 2 GM in D5W 5% 50 ML IV SCH (09:25)
[2022-02-28] MEDS: ALBUTEROL SULF 2.5 MG/0.5ML(0.5%) NEB SOLN NEB PRN ×4 (09:54→22:15)
[2022-02-28] MEDS: IPRATROPIUM BROM 0.5 MG/2.5ML INH SOL NEB SCH ×5 (09:54→22:15)
[2022-02-28] MEDS: ENOXAPARIN SOD 40 MG/0.4 ML SYRINGE SC SCH (10:00)
[2022-02-28] MEDS: PANTOPRAZOLE 40 MG TAB PO SCH (10:00)
[2022-02-28] MEDS ORDERED: FLUMAZENIL 0.1 MG/ML INJ 10ML MDV IV ONE (10:06)
[2022-02-28] MEDS ORDERED: BENZOCAINE (DENTAL) 20 % SPRAY 60ML MT ONE (10:06)
[2022-02-28] MEDS ORDERED: NALOXONE HCL 0.4 MG/ML VIAL ONE (10:06)
[2022-02-28] MEDS ORDERED: LIDOCAINE 2%HCL (LOCAL ANESTH.) INJ 20ML MDV ONE (10:08)
[2022-02-28] MEDS ORDERED: LIDOCAINE HCL 2% TOP JELLY 5ML TOP ONE (10:08)
[2022-02-28] MEDS ORDERED: SODIUM CHLORIDE LOCK 10 ML ONE (10:08)
[2022-02-28] MEDS ORDERED: GLYCOPYRROLATE 0.2 MG/ML 1ML VIAL ONE (10:08)
[2022-02-28] MEDS ORDERED: MIDAZOLAM HCL 5 MG/ML-1ML VIAL ONE (10:08)
[2022-02-28] MEDS ORDERED: EPINEPHrine HCL 1 MG/1 ML AMP ONE (10:09)
[2022-02-28] MEDS ORDERED: fentaNYL CITRATE 100 MCG/2 ML VL ONE (10:09)
[2022-02-28] MEDS: SENNA 8.6 MG TAB PO SCH (22:00)
[2022-03-01] VITALS (24 sets, daily range): BP systolic 89–123; BP diastolic 60–83
[2022-03-01] MEDS: HYDROcodone-ACET 5/325MG TAB PO PRN ×4 (01:43→15:57)
[2022-03-01 05:27] LABS: Basophils # (auto) 0 10 ^3/uL (0-0.2); Eosinophils # (auto) 0 10 ^3/uL (0-0.8); Hemoglobin 7.2 g/dL (13.5-17.5); Lymphocytes # (auto) 0.3 10 ^3/uL (0.4-5.4); Mean Corpuscular Volume 81.4 fL (80.0-100.0)
[2022-03-01 05:31] LABS: Basophils % (auto) 0.2 % (0.0-2.0); Eosinophils % (auto) 0.1 % (0.0-7.0); Hematocrit 22.1 % (41.0-53.0); Mean Corpuscular Hemoglobin 26.6 pg (28.0-32.0); Mean Corpuscular Hgb Conc. 32.6 g/dL (32.0-36.0); Monocytes # (auto) 1.2 10 ^3/uL (0-1.3); Monocytes % (auto) 7.4 % (0.0-12.0); Neutrophils # (auto) 14.5 10 ^3/uL (1.6-8.6); Neutrophils % (auto) 90.3 % (37.0-80.0); Red Blood Cells 2.72 10^6/uL (4.5-5.90); Red Cell Distribution Width 18.5 % (11.8-14.3)
[2022-03-01 05:48] LABS: Potassium 4.4 mmol/L (3.5-5.1)
[2022-03-01] MEDS: THYROID 60 MG TAB PO SCH (05:50)
[2022-03-01] MEDS: ALBUTEROL SULF 2.5 MG/0.5ML(0.5%) NEB SOLN NEB PRN ×5 (06:18→22:28)
[2022-03-01] MEDS: IPRATROPIUM BROM 0.5 MG/2.5ML INH SOL NEB SCH ×5 (06:18→22:28)
[2022-03-01] MEDS: OMEPRAZOLE DR 20 MG CAPSULE PO SCH (07:00)
[2022-03-01] MEDS: ALUM & MAG HYDROX-SIMETH LIQ(MAALOX) 30 ML PO SCH (10:00)
[2022-03-01] MEDS: CEFTRIAXONE SODIUM 2 GM in D5W 5% 50 ML IV SCH (10:02)
[2022-03-01] MEDS: DOCUSATE SOD 100 MG CAP PO SCH ×2 (10:02→21:42)
[2022-03-01] MEDS: PANTOPRAZOLE 40 MG TAB PO SCH (10:03)
[2022-03-01] MEDS: ENOXAPARIN SOD 40 MG/0.4 ML SYRINGE SC SCH (10:03)
[2022-03-01] MEDS: ACETAMINOPHEN 325 MG TAB PO PRN (20:10)
[2022-03-01] MEDS: SENNA 8.6 MG TAB PO SCH (21:38)
[2022-03-02] VITALS (22 sets, daily range): BP systolic 85–110; BP diastolic 52–79
[2022-03-02] MEDS: ACETAMINOPHEN 325 MG TAB PO PRN ×3 (02:11→21:01)
[2022-03-02 05:04] LABS: Eosinophils # (auto) 0 10 ^3/uL (0-0.8); Eosinophils % (auto) 0.3 % (0.0-7.0); Hemoglobin 7.3 g/dL (13.5-17.5); Lymphocytes # (auto) 0.3 10 ^3/uL (0.4-5.4); Monocytes # (auto) 1.1 10 ^3/uL (0-1.3); White Blood Cell 14.5 10^3/uL (4.4-10.8)
[2022-03-02 05:07] LABS: Basophils # (auto) 0 10 ^3/uL (0-0.2); Basophils % (auto) 0.2 % (0.0-2.0); Hematocrit 23.5 % (41.0-53.0); Lymphocytes % (auto) 2.3 % (10.0-50.0); Mean Corpuscular Hemoglobin 25.2 pg (28.0-32.0); Mean Corpuscular Volume 81.2 fL (80.0-100.0); Monocytes % (auto) 7.7 % (0.0-12.0); Neutrophils % (auto) 89.5 % (37.0-80.0); Red Cell Distribution Width 18.4 % (11.8-14.3)
[2022-03-02 05:20] LABS: Calcium 8.4 mg/dL (8.5-10.1); Potassium 4.1 mmol/L (3.5-5.1)
[2022-03-02 05:22] LABS: BUN/Creatinine Ratio 23.3
[2022-03-02] MEDS: THYROID 60 MG TAB PO SCH (06:00)
[2022-03-02] MEDS: IPRATROPIUM BROM 0.5 MG/2.5ML INH SOL NEB SCH ×5 (06:14→21:56)
[2022-03-02] MEDS: ALUM & MAG HYDROX-SIMETH LIQ(MAALOX) 30 ML PO SCH (10:00)
[2022-03-02] MEDS: PANTOPRAZOLE 40 MG TAB PO SCH (10:00)
[2022-03-02] MEDS: CEFTRIAXONE SODIUM 2 GM in D5W 5% 50 ML IV SCH (10:27)
[2022-03-02] MEDS: DOCUSATE SOD 100 MG CAP PO SCH ×2 (10:27→22:14)
[2022-03-02] MEDS: ENOXAPARIN SOD 40 MG/0.4 ML SYRINGE SC SCH (10:28)
[2022-03-02] MEDS: OMEPRAZOLE DR 20 MG CAPSULE PO SCH (10:29)
[2022-03-02] MEDS ORDERED: IOHEXOL 300 MG/ML 100ML BOTTLE IJ ONE (16:35)
[2022-03-02] MEDS: HYDROcodone-ACET 5/325MG TAB PO PRN ×2 (16:40→22:49)
[2022-03-02] MEDS: SENNA 8.6 MG TAB PO SCH (22:14)
[2022-03-03] VITALS (24 sets, daily range): BP systolic 93–114; BP diastolic 65–82
[2022-03-03] MEDS: IPRATROPIUM BROM 0.5 MG/2.5ML INH SOL NEB SCH ×6 (01:52→22:09)
[2022-03-03] MEDS: THYROID 60 MG TAB PO SCH ×2 (05:00→22:38)
[2022-03-03 05:06] LABS: Basophils # (auto) 0 10 ^3/uL (0-0.2); Basophils % (auto) 0.2 % (0.0-2.0); Eosinophils # (auto) 0.1 10 ^3/uL (0-0.8); Eosinophils % (auto) 0.8 % (0.0-7.0); Hematocrit 23.6 % (41.0-53.0); Hemoglobin 7.3 g/dL (13.5-17.5); Lymphocytes # (auto) 0.2 10 ^3/uL (0.4-5.4); Lymphocytes % (auto) 1.9 % (10.0-50.0); Mean Corpuscular Hemoglobin 25.3 pg (28.0-32.0); Mean Corpuscular Hgb Conc. 30.9 g/dL (32.0-36.0); Mean Corpuscular Volume 81.7 fL (80.0-100.0); Monocytes # (auto) 0.8 10 ^3/uL (0-1.3); Monocytes % (auto) 6.3 % (0.0-12.0); Neutrophils % (auto) 90.8 % (37.0-80.0); Red Blood Cells 2.88 10^6/uL (4.5-5.90); Red Cell Distribution Width 18.3 % (11.8-14.3); White Blood Cell 13.2 10^3/uL (4.4-10.8)
[2022-03-03 05:21] LABS: Calcium 7.8 mg/dL (8.5-10.1)
[2022-03-03 05:27] LABS: Albumin 1.1 g/dL (3.4-5.0); BUN/Creatinine Ratio 24.3; Bilirubin, Total 0.1 mg/dL (0.2-1.0); Total Protein 6.4 g/dL (6.4-8.2)
[2022-03-03] MEDS: ALBUTEROL SULF 2.5 MG/0.5ML(0.5%) NEB SOLN NEB PRN ×3 (05:42→13:59)
[2022-03-03] MEDS: OMEPRAZOLE DR 20 MG PO SCH (05:43)
[2022-03-03] MEDS: HYDROcodone-ACET 5/325MG TAB PO PRN ×3 (06:36→21:03)
[2022-03-03] MEDS: DOCUSATE SOD 100 MG CAP PO SCH ×2 (09:46→22:00)
[2022-03-03] MEDS: ENOXAPARIN SOD 40 MG/0.4 ML SYRINGE SC SCH ×2 (09:46→09:58)
[2022-03-03] MEDS: CEFTRIAXONE SODIUM 2 GM in D5W 5% 50 ML IV SCH (09:46)
[2022-03-03] MEDS: ALUM & MAG HYDROX-SIMETH LIQ(MAALOX) 30 ML PO SCH (09:49)
[2022-03-03] MEDS: ACETAMINOPHEN 325 MG TAB PO PRN (10:16)
[2022-03-03 12:33] LABS: Magnesium 1.7 mg/dL (1.6-2.6); Phosphorus 3.2 mg/dL (2.5-4.90); Potassium 4.1 mmol/L (3.5-5.1)
[2022-03-03] MEDS: MAGNESIUM SULFATE 1GM/100ML 100 ML IV SCH ×2 (16:32→19:00)
[2022-03-03] MEDS: SENNA 8.6 MG TAB PO SCH (22:00)
[2022-03-04] VITALS (22 sets, daily range): BP systolic 94–115; BP diastolic 63–82
[2022-03-04] MEDS: HYDROcodone-ACET 5/325MG TAB PO PRN ×3 (05:16→20:18)
[2022-03-04] MEDS: OMEPRAZOLE DR 20 MG PO SCH (06:00)
[2022-03-04] MEDS: IPRATROPIUM BROM 0.5 MG/2.5ML INH SOL NEB SCH ×4 (06:46→19:00)
[2022-03-04] MEDS: ALBUTEROL SULF 2.5 MG/0.5ML(0.5%) NEB SOLN NEB PRN ×4 (06:46→19:00)
[2022-03-04] MEDS: ALUM & MAG HYDROX-SIMETH LIQ(MAALOX) 30 ML PO SCH (10:00)
[2022-03-04] MEDS: ENOXAPARIN SOD 40 MG/0.4 ML SYRINGE SC SCH (10:06)
[2022-03-04] MEDS: CEFTRIAXONE SODIUM 2 GM in D5W 5% 50 ML IV SCH (10:06)
[2022-03-04] MEDS: DOCUSATE SOD 100 MG CAP PO SCH ×2 (10:06→22:00)
[2022-03-04 10:15] LABS: Basophils # (auto) 0 10 ^3/uL (0-0.2); Eosinophils # (auto) 0.1 10 ^3/uL (0-0.8); Eosinophils % (auto) 1.1 % (0.0-7.0); Lymphocytes # (auto) 0.3 10 ^3/uL (0.4-5.4); Neutrophils # (auto) 9.8 10 ^3/uL (1.6-8.6)
[2022-03-04 10:17] LABS: Basophils % (auto) 0.3 % (0.0-2.0); Hematocrit 23.8 % (41.0-53.0); Hemoglobin 7.5 g/dL (13.5-17.5); Lymphocytes % (auto) 2.8 % (10.0-50.0); Mean Corpuscular Hemoglobin 25.5 pg (28.0-32.0); Mean Corpuscular Hgb Conc. 31.6 g/dL (32.0-36.0); Mean Corpuscular Volume 80.9 fL (80.0-100.0); Monocytes # (auto) 0.8 10 ^3/uL (0-1.3); Monocytes % (auto) 6.9 % (0.0-12.0); Neutrophils % (auto) 88.9 % (37.0-80.0); Nucleated Red Blood Cells % 0.1 %; Red Blood Cells 2.94 10^6/uL (4.5-5.90); Red Cell Distribution Width 18.2 % (11.8-14.3)
[2022-03-04 10:19] LABS: Albumin 1.2 g/dL (3.4-5.0); Potassium 4.4 mmol/L (3.5-5.1)
[2022-03-04 10:25] LABS: BUN/Creatinine Ratio 23.7; Bilirubin, Total 0.2 mg/dL (0.2-1.0)
[2022-03-04] MEDS: ACETAMINOPHEN 325 MG TAB PO PRN (14:43)
[2022-03-04] MEDS: SENNA 8.6 MG TAB PO SCH (22:00)
[2022-03-05] VITALS (18 sets, daily range): BP systolic 87–112; BP diastolic 50–83
[2022-03-05] MEDS: ALBUTEROL SULF 2.5 MG/0.5ML(0.5%) NEB SOLN NEB PRN ×6 (01:43→22:07)
[2022-03-05] MEDS: IPRATROPIUM BROM 0.5 MG/2.5ML INH SOL NEB SCH ×6 (01:43→22:07)
[2022-03-05] MEDS: HYDROcodone-ACET 5/325MG TAB PO PRN ×4 (02:38→23:09)
[2022-03-05] MEDS: THYROID 60 MG TAB PO SCH (05:00)
[2022-03-05] MEDS: OMEPRAZOLE DR 20 MG PO SCH (06:00)
[2022-03-05 09:07] LABS: Hematocrit 23.6 % (41.0-53.0); Hemoglobin 7.6 g/dL (13.5-17.5)
[2022-03-05 09:21] LABS: Albumin 1.2 g/dL (3.4-5.0); Potassium 4.5 mmol/L (3.5-5.1)
[2022-03-05 09:25] LABS: BUN/Creatinine Ratio 22.2; Bilirubin, Total 0.1 mg/dL (0.2-1.0); Total Protein 6.8 g/dL (6.4-8.2)
[2022-03-05] MEDS ORDERED: cefTRIAXone 1GM/50ML D5W 50 ML IV ONE (09:39)
[2022-03-05] MEDS: DOCUSATE SOD 100 MG CAP PO SCH ×2 (09:39→23:08)
[2022-03-05] MEDS: CEFTRIAXONE SODIUM 2 GM in D5W 5% 50 ML IV SCH (09:40)
[2022-03-05] MEDS: ENOXAPARIN SOD 40 MG/0.4 ML SYRINGE SC SCH (09:51)
[2022-03-05] MEDS: ALUM & MAG HYDROX-SIMETH LIQ(MAALOX) 30 ML PO SCH (09:51)
[2022-03-05] MEDS: ACETAMINOPHEN 325 MG TAB PO PRN (20:53)
[2022-03-05] MEDS: SENNA 8.6 MG TAB PO SCH (22:00)
[2022-03-06] VITALS (16 sets, daily range): BP systolic 89–107; BP diastolic 59–83
[2022-03-06] MEDS: HYDROcodone-ACET 5/325MG TAB PO PRN ×3 (05:06→20:24)
[2022-03-06] MEDS: THYROID 60 MG TAB PO SCH (05:07)
[2022-03-06] MEDS: OMEPRAZOLE DR 20 MG PO SCH (05:07)
[2022-03-06] MEDS: IPRATROPIUM BROM 0.5 MG/2.5ML INH SOL NEB SCH ×5 (06:59→22:26)
[2022-03-06] MEDS: ALBUTEROL SULF 2.5 MG/0.5ML(0.5%) NEB SOLN NEB PRN ×5 (06:59→22:26)
[2022-03-06 09:11] LABS: Potassium 4.4 mmol/L (3.5-5.1)
[2022-03-06 09:20] LABS: Albumin 1.4 g/dL (3.4-5.0); BUN/Creatinine Ratio 28.6; Bilirubin, Total 0.2 mg/dL (0.2-1.0); Calcium 8.6 mg/dL (8.5-10.1); Total Protein 7.3 g/dL (6.4-8.2)
[2022-03-06] MEDS: ALUM & MAG HYDROX-SIMETH LIQ(MAALOX) 30 ML PO SCH (10:00)
[2022-03-06] MEDS: ENOXAPARIN SOD 40 MG/0.4 ML SYRINGE SC SCH (10:00)
[2022-03-06] MEDS: DOCUSATE SOD 100 MG CAP PO SCH ×2 (10:12→20:25)
[2022-03-06] MEDS: CEFTRIAXONE SODIUM 2 GM in D5W 5% 50 ML IV SCH (11:20)
[2022-03-06] MEDS ORDERED: MICAFUNGIN SODIUM 100 MG in SODIUM CHL 0.9% 100 ML IV ONE (12:30)
[2022-03-06] MEDS: MICAFUNGIN SODIUM 100 MG in SODIUM CHL 0.9% 100 ML IV SCH (14:20)
[2022-03-06] MEDS: Pro-Stat SF 30ml Vanilla PO SCH (19:51)
[2022-03-06] MEDS: Ensure Enlive Strawberry 8oz Bottle PO SCH (19:51)
[2022-03-06] MEDS: SENNA 8.6 MG TAB PO SCH (22:00)
[2022-03-07] VITALS (18 sets, daily range): BP systolic 97–140; BP diastolic 56–99
[2022-03-07] MEDS: HYDROcodone-ACET 5/325MG TAB PO PRN ×4 (02:44→21:55)
[2022-03-07] MEDS: THYROID 60 MG TAB PO SCH (05:00)
[2022-03-07] MEDS: OMEPRAZOLE DR 20 MG PO SCH (06:00)
[2022-03-07] MEDS: ALBUTEROL SULF 2.5 MG/0.5ML(0.5%) NEB SOLN NEB PRN ×3 (06:41→22:04)
[2022-03-07] MEDS: IPRATROPIUM BROM 0.5 MG/2.5ML INH SOL NEB SCH ×5 (06:42→22:04)
[2022-03-07] MEDS: Pro-Stat SF 30ml Vanilla PO SCH ×2 (08:18→18:01)
[2022-03-07] MEDS: Ensure Enlive Strawberry 8oz Bottle PO SCH ×2 (08:18→18:01)
[2022-03-07] MEDS: ALUM & MAG HYDROX-SIMETH LIQ(MAALOX) 30 ML PO SCH ×2 (08:21→08:40)
[2022-03-07] MEDS: ENOXAPARIN SOD 40 MG/0.4 ML SYRINGE SC SCH (08:21)
[2022-03-07] MEDS: MICAFUNGIN SODIUM 100 MG in SODIUM CHL 0.9% 100 ML IV SCH ×2 (08:21→10:15)
[2022-03-07] MEDS: DOCUSATE SOD 100 MG CAP PO SCH ×2 (08:21→21:55)
[2022-03-07] MEDS: CEFTRIAXONE SODIUM 2 GM in D5W 5% 50 ML IV SCH (08:33)
[2022-03-07] MEDS ORDERED: MICAFUNGIN SODIUM 100 MG in SODIUM CHL 0.9% 100 ML IV SCH (10:00)
[2022-03-07] MEDS: ACETAMINOPHEN 325 MG TAB PO PRN (18:41)
[2022-03-07] MEDS: SENNA 8.6 MG TAB PO SCH (21:55)
[2022-03-08] VITALS (12 sets, daily range): BP systolic 98–124; BP diastolic 57–79
[2022-03-08] MEDS: ACETAMINOPHEN 325 MG TAB PO PRN ×3 (01:20→22:03)
[2022-03-08] MEDS: OMEPRAZOLE DR 20 MG PO SCH (05:24)
[2022-03-08] MEDS: THYROID 60 MG TAB PO SCH (05:25)
[2022-03-08] MEDS: HYDROcodone-ACET 5/325MG TAB PO PRN ×2 (06:34→16:40)
[2022-03-08] MEDS: IPRATROPIUM BROM 0.5 MG/2.5ML INH SOL NEB SCH ×5 (07:02→22:11)
[2022-03-08] MEDS: ALBUTEROL SULF 2.5 MG/0.5ML(0.5%) NEB SOLN NEB PRN ×3 (07:02→22:11)
[2022-03-08] MEDS: Pro-Stat SF 30ml Vanilla PO SCH ×2 (07:59→18:43)
[2022-03-08] MEDS: Ensure Enlive Strawberry 8oz Bottle PO SCH ×2 (07:59→18:43)
[2022-03-08] MEDS: CEFTRIAXONE SODIUM 2 GM in D5W 5% 50 ML IV SCH (09:23)
[2022-03-08] MEDS: DOCUSATE SOD 100 MG CAP PO SCH ×2 (09:23→22:00)
[2022-03-08] MEDS: ENOXAPARIN SOD 40 MG/0.4 ML SYRINGE SC SCH (09:23)
[2022-03-08] MEDS: ALUM & MAG HYDROX-SIMETH LIQ(MAALOX) 30 ML PO SCH (09:23)
[2022-03-08] MEDS: MICAFUNGIN SODIUM 100 MG in SODIUM CHL 0.9% 100 ML IV SCH (10:32)
[2022-03-08] MEDS: SENNA 8.6 MG TAB PO SCH (22:00)
[2022-03-09] MEDS: HYDROcodone-ACET 5/325MG TAB PO PRN ×5 (01:25→22:18)
[2022-03-09 04:41] VITALS: BP 91/63
[2022-03-09] MEDS: THYROID 60 MG TAB PO SCH (05:00)
[2022-03-09] MEDS: OMEPRAZOLE DR 20 MG PO SCH (06:07)
[2022-03-09] MEDS: IPRATROPIUM BROM 0.5 MG/2.5ML INH SOL NEB SCH ×5 (07:14→22:14)
[2022-03-09] MEDS: ALBUTEROL SULF 2.5 MG/0.5ML(0.5%) NEB SOLN NEB PRN ×5 (07:14→22:14)
[2022-03-09 09:00] VITALS: BP 105/71
[2022-03-09 10:55] LABS: Eosinophils # (auto) 0.1 10 ^3/uL (0-0.8); Hemoglobin 7.3 g/dL (13.5-17.5); Monocytes # (auto) 0.8 10 ^3/uL (0-1.3); Neutrophils # (auto) 8.9 10 ^3/uL (1.6-8.6); Red Cell Distribution Width 18.6 % (11.8-14.3)
[2022-03-09 10:57] LABS: Basophils # (auto) 0 10 ^3/uL (0-0.2); Basophils % (auto) 0.5 % (0.0-2.0); Eosinophils % (auto) 0.9 % (0.0-7.0); Lymphocytes # (auto) 0.4 10 ^3/uL (0.4-5.4); Lymphocytes % (auto) 4.2 % (10.0-50.0); Mean Corpuscular Hemoglobin 25.3 pg (28.0-32.0); Mean Corpuscular Hgb Conc. 31.6 g/dL (32.0-36.0); Mean Corpuscular Volume 79.9 fL (80.0-100.0); Monocytes % (auto) 7.9 % (0.0-12.0); Neutrophils % (auto) 86.5 % (37.0-80.0); Red Blood Cells 2.88 10^6/uL (4.5-5.90); White Blood Cell 10.3 10^3/uL (4.4-10.8)
[2022-03-09] MEDS: Pro-Stat SF 30ml Vanilla PO SCH ×2 (10:58→18:34)
[2022-03-09] MEDS: CEFTRIAXONE SODIUM 2 GM in D5W 5% 50 ML IV SCH (10:58)
[2022-03-09] MEDS: Ensure Enlive Strawberry 8oz Bottle PO SCH ×2 (10:58→18:34)
[2022-03-09] MEDS: DOCUSATE SOD 100 MG CAP PO SCH ×2 (10:59→22:18)
[2022-03-09] MEDS: ALUM & MAG HYDROX-SIMETH LIQ(MAALOX) 30 ML PO SCH (10:59)
[2022-03-09 11:10] LABS: BUN/Creatinine Ratio 40.5; Calcium 7.9 mg/dL (8.5-10.1); Potassium 4.2 mmol/L (3.5-5.1)
[2022-03-09] MEDS: MICAFUNGIN SODIUM 100 MG in SODIUM CHL 0.9% 100 ML IV SCH (12:34)
[2022-03-09 13:00] VITALS: BP 96/62
[2022-03-09 15:58] VITALS: BP 96/62
[2022-03-09 16:37] VITALS: BP 104/70
[2022-03-09] MEDS: ACETAMINOPHEN 325 MG TAB PO PRN (21:13)
[2022-03-09 22:00] VITALS: BP 104/66
[2022-03-09] MEDS: SENNA 8.6 MG TAB PO SCH (22:18)
[2022-03-10] MEDS: ALBUTEROL SULF 2.5 MG/0.5ML(0.5%) NEB SOLN NEB PRN ×4 (02:21→22:17)
[2022-03-10] MEDS: HYDROcodone-ACET 5/325MG TAB PO PRN ×2 (03:02→16:49)
[2022-03-10] MEDS: THYROID 60 MG TAB PO SCH (04:53)
[2022-03-10] MEDS: OMEPRAZOLE DR 20 MG PO SCH (04:53)
[2022-03-10 05:00] VITALS: BP 90/60
[2022-03-10] MEDS: IPRATROPIUM BROM 0.5 MG/2.5ML INH SOL NEB SCH ×4 (05:55→22:17)
[2022-03-10] MEDS: Ensure Enlive Strawberry 8oz Bottle PO SCH ×2 (08:36→18:48)
[2022-03-10] MEDS: Pro-Stat SF 30ml Vanilla PO SCH ×2 (08:36→18:48)
[2022-03-10] MEDS: ACETAMINOPHEN 325 MG TAB PO PRN ×2 (08:37→21:06)
[2022-03-10 09:00] VITALS: BP 92/64
[2022-03-10] MEDS: ALUM & MAG HYDROX-SIMETH LIQ(MAALOX) 30 ML PO SCH (10:08)
[2022-03-10] MEDS: DOCUSATE SOD 100 MG CAP PO SCH ×2 (10:08→22:00)
[2022-03-10] MEDS: MICAFUNGIN SODIUM 100 MG in SODIUM CHL 0.9% 100 ML IV SCH (10:09)
[2022-03-10] MEDS: CEFTRIAXONE SODIUM 2 GM in D5W 5% 50 ML IV SCH (10:10)
[2022-03-10 13:00] VITALS: BP 99/67
[2022-03-10 17:00] VITALS: BP 98/69
[2022-03-10 22:00] VITALS: BP 107/65
[2022-03-10] MEDS: SENNA 8.6 MG TAB PO SCH (22:00)
[2022-03-11] MEDS: HYDROcodone-ACET 5/325MG TAB PO PRN ×5 (02:15→20:14)
[2022-03-11] MEDS: IPRATROPIUM BROM 0.5 MG/2.5ML INH SOL NEB SCH ×6 (02:37→22:09)
[2022-03-11 05:00] VITALS: BP 92/67
[2022-03-11] MEDS: THYROID 60 MG TAB PO SCH (05:00)
[2022-03-11] MEDS: OMEPRAZOLE DR 20 MG PO SCH (05:57)
[2022-03-11] MEDS: Pro-Stat SF 30ml Vanilla PO SCH ×2 (08:09→18:16)
[2022-03-11] MEDS: Ensure Enlive Strawberry 8oz Bottle PO SCH ×2 (08:09→18:15)
[2022-03-11 09:00] VITALS: BP 104/65
[2022-03-11] MEDS: MICAFUNGIN SODIUM 100 MG in SODIUM CHL 0.9% 100 ML IV SCH (09:28)
[2022-03-11] MEDS: CEFTRIAXONE SODIUM 2 GM in D5W 5% 50 ML IV SCH (09:29)
[2022-03-11] MEDS: ALUM & MAG HYDROX-SIMETH LIQ(MAALOX) 30 ML PO SCH (09:29)
[2022-03-11] MEDS: ACETAMINOPHEN 325 MG TAB PO PRN ×2 (09:29→22:43)
[2022-03-11] MEDS: DOCUSATE SOD 100 MG CAP PO SCH ×2 (09:29→22:39)
[2022-03-11] MEDS: ALBUTEROL SULF 2.5 MG/0.5ML(0.5%) NEB SOLN NEB PRN ×5 (11:00→22:09)
[2022-03-11 13:00] VITALS: BP 103/66
[2022-03-11 17:00] VITALS: BP 111/77
[2022-03-11 20:00] VITALS: BP 111/77
[2022-03-11 21:41] VITALS: BP 111/73
[2022-03-11] MEDS: SENNA 8.6 MG TAB PO SCH (22:39)
[2022-03-12] MEDS: IPRATROPIUM BROM 0.5 MG/2.5ML INH SOL NEB SCH ×6 (01:52→21:57)
[2022-03-12] MEDS: ALBUTEROL SULF 2.5 MG/0.5ML(0.5%) NEB SOLN NEB PRN ×6 (01:52→21:57)
[2022-03-12] MEDS: HYDROcodone-ACET 5/325MG TAB PO PRN ×4 (02:05→22:44)
[2022-03-12 05:00] VITALS: BP 103/79
[2022-03-12] MEDS: THYROID 60 MG TAB PO SCH (05:00)
[2022-03-12] MEDS: OMEPRAZOLE DR 20 MG PO SCH (06:17)
[2022-03-12 09:00] VITALS: BP 113/70
[2022-03-12] MEDS: MICAFUNGIN SODIUM 100 MG in SODIUM CHL 0.9% 100 ML IV SCH (10:00)
[2022-03-12] MEDS: DOCUSATE SOD 100 MG CAP PO SCH ×2 (10:07→22:44)
[2022-03-12] MEDS: CEFTRIAXONE SODIUM 2 GM in D5W 5% 50 ML IV SCH (10:07)
[2022-03-12 13:00] VITALS: BP 95/71
[2022-03-12] MEDS: Ensure Enlive Strawberry 8oz Bottle PO SCH ×2 (13:41→18:00)
[2022-03-12] MEDS: Pro-Stat SF 30ml Vanilla PO SCH ×2 (13:42→18:00)
[2022-03-12 17:29] VITALS: BP 97/76
[2022-03-12] MEDS: ALUM & MAG HYDROX-SIMETH LIQ(MAALOX) 30 ML PO SCH (17:31)
[2022-03-12] MEDS: ACETAMINOPHEN 325 MG TAB PO PRN (17:32)
[2022-03-12 22:00] VITALS: BP 108/73
[2022-03-12] MEDS: SENNA 8.6 MG TAB PO SCH (22:44)
[2022-03-13] MEDS: ACETAMINOPHEN 325 MG TAB PO PRN ×3 (02:23→21:58)
[2022-03-13] MEDS: IPRATROPIUM BROM 0.5 MG/2.5ML INH SOL NEB SCH ×7 (02:29→22:42)
[2022-03-13] MEDS: ALBUTEROL SULF 2.5 MG/0.5ML(0.5%) NEB SOLN NEB PRN ×6 (02:29→22:42)
[2022-03-13 05:00] VITALS: BP 99/67
[2022-03-13] MEDS: HYDROcodone-ACET 5/325MG TAB PO PRN ×3 (05:41→19:47)
[2022-03-13] MEDS: THYROID 60 MG TAB PO SCH (05:41)
[2022-03-13] MEDS: OMEPRAZOLE DR 20 MG PO SCH (05:41)
[2022-03-13] MEDS: Ensure Enlive Strawberry 8oz Bottle PO SCH ×2 (08:00→19:12)
[2022-03-13] MEDS: Pro-Stat SF 30ml Vanilla PO SCH ×2 (08:00→19:12)
[2022-03-13 09:00] VITALS: BP 103/76
[2022-03-13] MEDS: ALUM & MAG HYDROX-SIMETH LIQ(MAALOX) 30 ML PO SCH (09:59)
[2022-03-13] MEDS: DOCUSATE SOD 100 MG CAP PO SCH ×2 (09:59→21:58)
[2022-03-13] MEDS: MICAFUNGIN SODIUM 100 MG in SODIUM CHL 0.9% 100 ML IV SCH (10:00)
[2022-03-13] MEDS: CEFTRIAXONE SODIUM 2 GM in D5W 5% 50 ML IV SCH (11:34)
[2022-03-13 13:00] VITALS: BP 97/62
[2022-03-13 16:43] VITALS: BP 94/62
[2022-03-13] MEDS ORDERED: FLUCONAZOLE 100 MG TAB PO SCH (16:47)
[2022-03-13] MEDS: SENNA 8.6 MG TAB PO SCH (21:58)
[2022-03-13 22:00] VITALS: BP 100/68
[2022-03-14] MEDS: IPRATROPIUM BROM 0.5 MG/2.5ML INH SOL NEB SCH ×6 (02:35→22:19)
[2022-03-14] MEDS: ALBUTEROL SULF 2.5 MG/0.5ML(0.5%) NEB SOLN NEB PRN ×5 (02:35→22:19)
[2022-03-14 05:00] VITALS: BP 154/63
[2022-03-14] MEDS: THYROID 60 MG TAB PO SCH (05:30)
[2022-03-14] MEDS: OMEPRAZOLE DR 20 MG PO SCH (05:30)
[2022-03-14] MEDS: HYDROcodone-ACET 5/325MG TAB PO PRN ×4 (05:30→20:16)
[2022-03-14 09:00] VITALS: BP 102/75
[2022-03-14] MEDS: DOCUSATE SOD 100 MG CAP PO SCH ×2 (09:34→21:32)
[2022-03-14] MEDS: ALUM & MAG HYDROX-SIMETH LIQ(MAALOX) 30 ML PO SCH (09:35)
[2022-03-14 13:00] VITALS: BP 96/65
[2022-03-14] MEDS: Ensure Enlive Strawberry 8oz Bottle PO SCH ×2 (13:24→18:22)
[2022-03-14] MEDS: Pro-Stat SF 30ml Vanilla PO SCH ×2 (13:24→18:22)
[2022-03-14] MEDS: ACETAMINOPHEN 325 MG TAB PO PRN ×2 (14:00→21:32)
[2022-03-14 17:00] VITALS: BP 101/67
[2022-03-14] MEDS: SENNA 8.6 MG TAB PO SCH (21:32)
[2022-03-14 22:58] VITALS: BP 109/72
[2022-03-15] MEDS: HYDROcodone-ACET 5/325MG TAB PO PRN ×2 (01:30→08:00)
[2022-03-15] MEDS: ALBUTEROL SULF 2.5 MG/0.5ML(0.5%) NEB SOLN NEB PRN ×5 (02:18→18:44)
[2022-03-15] MEDS: IPRATROPIUM BROM 0.5 MG/2.5ML INH SOL NEB SCH ×5 (02:18→18:44)
[2022-03-15 05:17] VITALS: BP 102/70
[2022-03-15] MEDS: THYROID 60 MG TAB PO SCH (06:06)
[2022-03-15] MEDS: OMEPRAZOLE DR 20 MG PO SCH (06:07)
[2022-03-15] MEDS: ACETAMINOPHEN 325 MG TAB PO PRN ×2 (06:07→13:55)
[2022-03-15 09:00] VITALS: BP 94/62
[2022-03-15] MEDS ORDERED: FLUCONAZOLE 100 MG TAB PO SCH ×2 (10:00)
[2022-03-15] MEDS: DOCUSATE SOD 100 MG CAP PO SCH ×2 (10:00→12:45)
[2022-03-15] MEDS: Ensure Enlive Strawberry 8oz Bottle PO SCH ×2 (10:05→18:39)
[2022-03-15] MEDS: Pro-Stat SF 30ml Vanilla PO SCH ×2 (12:44→18:39)
[2022-03-15] MEDS: ALUM & MAG HYDROX-SIMETH LIQ(MAALOX) 30 ML PO SCH (12:45)
[2022-03-15 13:00] VITALS: BP 110/78
[2022-03-15 17:00] VITALS: BP 98/72
== END 2022-03-15 20:10 | DRG 720 ==
LOC: EDUNIT# 11:30 → ER 11:30 → EDBD 11:30 → TELE 16:46 → ICU WEST 02-20 04:43 → DOU IN ICU 02-21 19:38 → EAST 03-08 11:18 → TELE-EAST 03-08 23:05
PROVIDERS: ADMIT Internal Medicine; ATTEND Internal Medicine
PROC: 0W9930Z Drainage of Right Pleural Cavity with Drainage Device, Percutaneous Approach (ICD-10-PCS; principal; 2022-02-20)
PROC: 30233N1 Transfusion of Nonautologous Red Blood Cells into Peripheral Vein, Percutaneous Approach (ICD-10-PCS; 2022-02-25)
PROC: 0B9D8ZX Drainage of Right Middle Lung Lobe, Via Natural or Artificial Opening Endoscopic, Diagnostic (ICD-10-PCS; 2022-02-28)
PROC: 0BBD8ZX Excision of Right Middle Lung Lobe, Via Natural or Artificial Opening Endoscopic, Diagnostic (ICD-10-PCS; 2022-02-28)
DX: A41.89 Other specified sepsis (principal); J96.21 Acute and chronic respiratory failure with hypoxia; J86.9 Pyothorax without fistula; U07.1 COVID-19; J16.8 Pneumonia due to other specified infectious organisms; E44.0 Moderate protein-calorie malnutrition; B49 Unspecified mycosis; J90 Pleural effusion, not elsewhere classified; E87.1 Hypo-osmolality and hyponatremia; E88.09 Other disorders of plasma-protein metabolism, not elsewhere classified; J44.0 Chronic obstructive pulmonary disease with (acute) lower respiratory infection; D64.9 Anemia, unspecified; J98.11 Atelectasis; E03.9 Hypothyroidism, unspecified; J44.1 Chronic obstructive pulmonary disease with (acute) exacerbation; K21.9 Gastro-esophageal reflux disease without esophagitis; I10 Essential (primary) hypertension; Z85.819 Personal history of malignant neoplasm of unspecified site of lip, oral cavity, and pharynx; Z68.1 Body mass index [BMI] 19.9 or less, adult
CPT/HCPCS: 31624; 36415; 36600; 71045; 71250; 71260; 71275; 76604; 76942; 80048; 80053; 82805; 83605; 83735; 83880; 84100; 84132; 84484; 85007; 85014; 85018; 85025; 85027; 85379; 85610; 85730; 86850; 86900; 86901; 86920; 87040; 87070; 87077; 87081; 87205; 89051; 93005; 93306; 93970; 93971; 94640; 96365; 96368; 97110; 97116; 97163; 97530; 99291; A4223; C1729; G0378; J0171; J0696; J2001; J2248; J2250; J2405; J2543; J7060